=== PATIENT | female | born 1985 | race Two or more races ===

== ENCOUNTER 2018-08-18 09:55 | Emergency (ER) | payer OTHER ==
[2018-08-18 10:26] VITALS: BP 142/88; PULSE 67; TEMP 98.1; BMI 33.4
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
== END 2018-08-18 10:50 | disposition home or self-care (01) ==
LOC: JERFT 09:55
DX: M54.5 Low back pain (principal); V43.52XA Car driver injured in collision with other type car in traffic accident, initial encounter; Y93.89 Activity, other specified; Y92.410 Unspecified street and highway as the place of occurrence of the external cause
CPT/HCPCS: 99281-25

== ENCOUNTER 2023-07-07 05:08 | Day surgery (SDC) | payer OTHER ==
[2023-07-02 15:40] VITALS: BMI 41.1
[2023-07-07 13:23] VITALS: TEMP 98
[2023-07-07 13:29] VITALS: BP 127/66; PULSE 80; RESP 12
== END 2023-07-07 13:29 | disposition home or self-care (01) ==
LOC: JASU-ENDO 05:08
PROVIDERS: ATTEND Student in an Organized Health Care Education/Training Program
PROC: 0DB78ZX Excision of Stomach, Pylorus, Via Natural or Artificial Opening Endoscopic, Diagnostic (ICD-10-PCS; 2023-07-07)
PROC: 0DB68ZX Excision of Stomach, Via Natural or Artificial Opening Endoscopic, Diagnostic (ICD-10-PCS; 2023-07-07)
PROC: 0DB98ZX Excision of Duodenum, Via Natural or Artificial Opening Endoscopic, Diagnostic (ICD-10-PCS; principal; 2023-07-07 11:30)
DX: K29.50 Unspecified chronic gastritis without bleeding (principal); K29.80 Duodenitis without bleeding
CPT/HCPCS: 81025; 82962; 88305-TC; 88342-TC